=== PATIENT | male | born 1955 | race Caucasian/White ===

== ENCOUNTER → 2019-05-25 | Outpatient (CLI) | payer BC ==
[~2019-05-25] MED LIST: CELEBREX100 MG PO; LEVOXYL100 MCG PO; LOVASTATIN10 MG PO; NORVASC5 MG PO; PRINIVIL20 M1 PO; VIAGRA100 MG PO; VICODIN 5/500 505 MG PO; VICODIN 500 MG-1 TAB PO; WELLBUTRIN XL150 MG PO
--- NOTE | ~2019-05-25 | ST ---
[place], [place] EXERCISE STRESS TEST REPORT NAME: HARSH CANTU UNIT #: [id number] ROOM: DOCTOR: DILAN SANABRIA MD BIRTHDATE: [birth year] DOS: 05/25/2019 EXERCISE PORTION OF THE EXERCISE CARDIOLITE STRESS TEST Baseline cardiogram sinus rhythm with intraventricular conduction delay. The patient walked on the [place] protocol, duration of 6 minutes 38 seconds. Heart rate is 140, which is 90% of predicted heart rate. Procedure terminated on completion of the protocol. The patient did not develop any chest discomfort, did have some shortness of breath. There was some ST depressions in the inferior and lateral leads with exercise. No obvious chest discomfort. Blood pressure response was normal. FINAL IMPRESSION: Mildly abnormal EKG response with mild ST depression in the inferior and lateral leads with exercise, did have significant shortness of breath with exercise. No chest discomfort. Blood pressure and heart rate is normal. Nuclear images will be reported separately. DILAN SANABRIA MD CM:STRESS:EXERCISE STRESS TEST REPORT [id number] DILAN SANABRIA MD
--- NOTE | 2019-05-25 07:00 | NUR ---
INFORMED CONSENT OBTAINED FOR EXERCISE CARDIOLITE STRESS TEST WITH DR. SANABRIA. RESTING EKG NSR WITH A SUPINE HR OF 61 WITH BP OF 126/80 AND HR OF 64 WITH BP OF 118/80 IN STANDING POSITION. PT COMPLETED 6:38 OF A 2:00 MAXIMILIANO PROTOCOL WITH COMPLETION OF 38 SECONDS OF STAGE IV AT 4.2 MPH AND 16% GRADE. REACHED A PEAK HR OF 140 WHICH IS 89% OF PREDICTED MAX AND A PEAK BP OF 166/84. TEST TERMINATED BECAUSE OF FATIGUE AND SOB. HAD NO CHEST PAIN. DEVELOPED ST DEPRESSION IN LEADS II,III,AVF AND V4-V6. HAS A GOOD EXERCISE TOLERANCE. ABNORMAL WITH ST DEPRESSIONS. LAST RECOVERY HR OF 96 WITH BP OF 150/72. TO NUCLEAR MEDICINE IN STABLE CONDITION FOR SCANNING.
== END | disposition home or self-care (01) ==
LOC: CARD 02:10
DX: R94.31 Abnormal electrocardiogram [ECG] [EKG] (principal)

== ENCOUNTER → 2023-06-17 | Outpatient (CLI) | payer OTHER | END | disposition home or self-care (01) | LOC: RAD 15:15 | PROVIDERS: ATTEND Chiropractor | DX: M47.816 Spondylosis without myelopathy or radiculopathy, lumbar region (principal) ==

== ENCOUNTER → 2023-08-25 | Outpatient (CLI) | payer OTHER | END | disposition home or self-care (01) | LOC: RAD 11:24 | PROVIDERS: ATTEND Chiropractor | DX: M47.812 Spondylosis without myelopathy or radiculopathy, cervical region (principal); M48.02 Spinal stenosis, cervical region ==

== ENCOUNTER → 2024-09-15 | Outpatient (CLI) | payer OTHER | END | disposition home or self-care (01) | LOC: RAD 08:35 | PROVIDERS: ATTEND Nurse Practitioner | DX: R06.02 Shortness of breath (principal); R06.2 Wheezing ==

== ENCOUNTER → 2025-08-10 | Outpatient (CLI) | payer OTHER ==
[~2025-08-10] MED LIST changes: +IOHEXOL 350 MG/ML 100 ML VIAL IV ONE
== END | disposition home or self-care (01) ==
LOC: CT 09:43
PROVIDERS: ATTEND Urology
DX: N40.0 Benign prostatic hyperplasia without lower urinary tract symptoms (principal); K40.20 Bilateral inguinal hernia, without obstruction or gangrene, not specified as recurrent; K42.9 Umbilical hernia without obstruction or gangrene; N13.30 Unspecified hydronephrosis; I70.0 Atherosclerosis of aorta; M47.816 Spondylosis without myelopathy or radiculopathy, lumbar region